=== PATIENT | female | born 2000 | race Caucasian/White ===

== ENCOUNTER 2018-11-06 15:53 | Observation (INO) | payer OTHER ==
[~2018-11-06] VITALS: Ht 170.2 cm; Wt 75.7 kg
--- NOTE | 2018-11-06 16:24 | NUR ---
PT AMB TO ROOM IN NO DISTRESS
[2018-11-06 16:55] LABS: URINE BILIRUBIN - DIPSTICK NEGATIVE (NEGATIVE); URINE BLOOD DIPSTICK SMALL (NEGATIVE); URINE COLOR YELLOW; URINE GLUCOSE - DIPSTICK NEGATIVE (NEGATIVE); URINE KETONE NEGATIVE (NEGATIVE); URINE LEUK ESTERASE MODERATE (NEGATIVE); URINE NITRITE - DIPSTICK NEGATIVE (Negative); URINE PROTEIN - DIPSTICK 100 mg/dL (NEG-TRACE); URINE SPECIFIC GRAVITY >=1.030; URINE UROBILINOGEN - DIPSTICK 0.2 E.U./dL (0.2)
[2018-11-06 17:05] LABS: URINE SQUAMOUS EPITHELIAL CELL FEW EPI/hpf (0-FEW); URINE WBC TNTC WBC/hpf (0-5)
[2018-11-06 17:06] LABS: URINE BACTERIA FEW hpf
[2018-11-06 17:13] LABS: HEMATOCRIT 39.2 % (37.0-47.0); HEMOGLOBIN 13.3 g/dl (12.0-16.0); IMMATURE GRANULOCYTES 0.6 % (0.0-5.0); MEAN CELL VOLUME 87.3 fL CALC (80.0-100.0); MEAN CORPUSCULAR HGB 29.6 pG CALC (26.0-32.0); MEAN CORPUSCULAR HGB CONC 33.9 g/L CALC (32.0-36.0); NEUT# 12.43 thou/uL (2.00-7.15); RED BLOOD COUNT 4.49 mill/uL (4.20-5.60); RED CELL DISTRI WIDTH 13.2 % (11.5-15.5)
[2018-11-06 17:15] LABS: GFR > 60 ML/MIN (>=60 (CALC)); GFR FOR AFR.AMER. > 60 ML/MIN (>=60 (CALC))
--- NOTE | 2018-11-06 17:15 | NUR ---
URINE AND STOOL SPECIMEN SENT ORDERED,
[2018-11-06 17:28] LABS: ALBUMIN 4.9 g/dL (3.2-5.0); ALKALINE PHOSPHATASE 85 u/l (38-126); ANION GAP 17 (6-22 (CALC)); BILIRUBIN, TOTAL 0.5 mg/dL (0.0-1.4); BUN 10 mg/dL (7-17); BUN/CREATININE RATIO 14 (12-20 (CALC)); CARBON DIOXIDE 21 mmol/l (22-30); CHLORIDE 104 mmol/l (95-108); CREATININE 0.7 mg/dL (0.5-1.0); GFR > 60 ML/MIN (>=60 (CALC)); GFR FOR AFR.AMER. > 60 ML/MIN (>=60 (CALC)); LIPASE 23 u/l (23-300); POTASSIUM 3.8 mmol/l (3.5-5.1); SGOT/AST 22 u/l (14-36); SODIUM 137 mmol/l (137-146); TOTAL PROTEIN 8.1 g/dL (6.3-8.2)
--- NOTE | 2018-11-06 18:04 | NUR ---
PT MEDICATED FOR N/V LIGHTS DIMMEDPER PT REQUEST, REMAINNS NPO, CALL LOCKE WITHIN REACH, WILL CONTINUE TO MONITOR.
[2018-11-06 18:26] LABS: C. DIFFICILE TOXIN A&B NEGATIVE (NEGATIVE)
--- NOTE | 2018-11-06 19:00 | NUR ---
IN ROOM INTRODUCED SELF TO PT. NO C/O AT THIS TIME IVF FINISHED INFUSING.
--- NOTE | 2018-11-06 19:30 | NUR ---
MD IN ROOM TO DISCUSS CLINICAL FINDINGS WITH PT. AND TO ALSO MAKE HER AWARE OF ADMISSION, VERBALIZED UNDERSTANDING.
--- NOTE | 2018-11-06 20:50 | NUR ---
PO TYLENOL GIVEN FOR TEMP. 101.3.
--- NOTE | 2018-11-06 20:57 | NUR ---
Admission Note Report Given to: MICKEY SHORT Transported by: Wheelchair X Stretcher Transported with: X Nurse Transporter X Patent IV O2 Hot Mix Operator
--- NOTE | 2018-11-06 21:03 | NUR ---
PT ARRIVED VIA WHEELCHAIR ACCOMPAINED BY FRIEND AND ER STAFF. PT ALERT AND ORIENTED. NO DISTRESS NOTED. PT DENIES ANY NAUSEA AT THIS TIME. IV SITE APPEARS HEALTHY. PT AMBULATED FROM WHEELCHAIR TO BED WITH STEADY GAIT. DISCUSSED POC AND SAFETY PRECAUTIONS. PT VERBALIZED UNDERSTANDING. ORIENTED TO ROOM AND CALL LIGHT SYSTEM. CALL LIGHT WITHIN REACH. WILL CONTINUE TO MONITOR.
--- NOTE | 2018-11-06 21:05 | NUR ---
PT. TAKEN TO MS FLOOR VIA STRETCHER, NO C/O AT THIS TIME.
[2018-11-06 21:08] VITALS: BP 125/69
--- NOTE | 2018-11-07 00:33 | NUR ---
IV ABT INFUSING. PT TOLERATING WELL. NO S/S OF ADVERSE REACTION NOTED. PT DENIES ANY PAIN OR DISCOMFORT AT THIS TIME. CALL LIGHT WITHIN REACH. WILL CONTINUE TO MONITOR.
[2018-11-07 04:17] VITALS: BP 116/86
--- NOTE | 2018-11-07 04:19 | NUR ---
PT RESTING IN BED WITH EYES CLOSED. NO S/S OF DISTRESS NOTED. CALL LIGHT WITHIN REACH. WILL CONTINUE TO MONITOR.
[2018-11-07 05:12] LABS: HEMATOCRIT 36.9 % (37.0-47.0); HEMOGLOBIN 12.4 g/dl (12.0-16.0); IMMATURE GRANULOCYTES 0.6 % (0.0-5.0); MEAN CELL VOLUME 88.5 fL CALC (80.0-100.0); MEAN CORPUSCULAR HGB 29.7 pG CALC (26.0-32.0); MEAN CORPUSCULAR HGB CONC 33.6 g/L CALC (32.0-36.0); NEUT# 6.32 thou/uL (2.00-7.15); RED BLOOD COUNT 4.17 mill/uL (4.20-5.60); RED CELL DISTRI WIDTH 13.2 % (11.5-15.5)
[2018-11-07 05:24] LABS: ALKALINE PHOSPHATASE 70 u/l (38-126); ANION GAP 13 (6-22 (CALC)); BILIRUBIN, TOTAL 0.5 mg/dL (0.0-1.4); BUN 9 mg/dL (7-17); BUN/CREATININE RATIO 12 (12-20 (CALC)); CARBON DIOXIDE 24 mmol/l (22-30); CHLORIDE 104 mmol/l (95-108); CREATININE 0.7 mg/dL (0.5-1.0); GFR > 60 ML/MIN (>=60 (CALC)); GFR FOR AFR.AMER. > 60 ML/MIN (>=60 (CALC)); LIPASE 35 u/l (23-300); MAGNESIUM 1.8 mg/dL (1.6-2.3); POTASSIUM 3.9 mmol/l (3.5-5.1); SGOT/AST 17 u/l (14-36); SODIUM 137 mmol/l (137-146)
[2018-11-07 05:29] LABS: ALBUMIN 3.8 g/dL (3.2-5.0); AMYLASE < 30 u/l (30-110); TOTAL PROTEIN 6.4 g/dL (6.3-8.2)
--- NOTE | 2018-11-07 07:39 | NUR ---
PT IN BATHROOM VOMITTING IN TOILET. PT REQUESTING ZOFRAN, PT MEDICATED PER MAR. PT UNABLE TO EAT BREAKFAST. DISCUSSED POC, VITALS OBTAINED, PT CONTINUES TO DRY HEAVE. ASSESSMENT COMPLETED. EMESIS BAGS PROVIDED. IVF INFUSING AT THIS TIME. CALL LIGHT IN REACH,CONTINUE TO MONITOR.
[2018-11-07 07:43] VITALS: BP 128/72
--- NOTE | 2018-11-07 08:14 | NUR ---
PT HAS A LOW GRADE FEVER, C/O PAIN TO HER BACK. MEDICATED WITH TYLENOL. INFORMED CORRECTIONAL PROGRAM OFFICER PT IS STILL DRY HEAVING. NEW ORDERS FOR PHENERGAN TO BE ENTERED.
--- NOTE | 2018-11-07 11:56 | NUR ---
AND LIZA AT BEDSIDE TO DISCUSS POC.
--- NOTE | 2018-11-07 14:21 | NUR ---
PT RESTING IN BED WITH EYES CLOSED, NO SIGNS OF DISTRESS NOTED, RESP EVEN AND UNLABORED. CALL LIGHT IN REACH,CONTINUE TO MONITOR.
[2018-11-07 15:20] VITALS: BP 113/75
--- NOTE | 2018-11-07 19:00 | NUR ---
SBAR REPORT RECEIVED FROM HEATH. PATIENT RESTING IN BED WATCHING TV, VISITOR AT BEDSIDE. TECH REPORTS TEMP OF 100.3 AND PATIENT REPORTS FEELING NAUSEATED WITH A HEADACHE OF 4 ON SCALE 0-10. WILL FOLLOW UP WITH INTERVENTIONS, BED IN LOW POSITION, CALL LIGHT WITHIN REACH.
[2018-11-07 19:06] VITALS: BP 123/68
--- NOTE | 2018-11-07 19:40 | NUR ---
MEDICATED WITH PHENERGAN FOR NAUSEA AND TYLENOL FOR FEVER AND HEADACHE. TOLERATED WELL.
--- NOTE | 2018-11-07 20:40 | NUR ---
PHENERGAN AND TYLENOL EFFECTIVE, TEMPERATURE 98.3. PATIENT REPORTS PAIN 0 ON SCALE 0-10 AND DENIES FEELING NAUSEOUS AT THIS TIME. SITTING UP IN BED EATING BROTH, TOLERATING WELL.
--- NOTE | 2018-11-08 00:41 | NUR ---
RESTING QUIETLY IN BED. IV ZOSYN COMPLETE, TOLERATED WELL. LR @100ML/HR INFUSING, IV PATENT. PATIENT DENIES PAIN AT THIS TIME, CALL LIGHT WITHIN REACH.
[2018-11-08 04:00] VITALS: BP 110/57
--- NOTE | 2018-11-08 04:45 | NUR ---
RESTING QUIETLY, EYES CLOSED. CALL LIGHT WITHIN REACH.
[2018-11-08 05:04] LABS: HEMATOCRIT 34.4 % (37.0-47.0); HEMOGLOBIN 11.3 g/dl (12.0-16.0); IMMATURE GRANULOCYTES 0.6 % (0.0-5.0); MEAN CELL VOLUME 88.7 fL CALC (80.0-100.0); MEAN CORPUSCULAR HGB 29.1 pG CALC (26.0-32.0); MEAN CORPUSCULAR HGB CONC 32.8 g/L CALC (32.0-36.0); NEUT# 2.28 thou/uL (2.00-7.15); RED BLOOD COUNT 3.88 mill/uL (4.20-5.60); RED CELL DISTRI WIDTH 13.3 % (11.5-15.5)
[2018-11-08 05:16] LABS: ANION GAP 11 (6-22 (CALC)); BUN 7 mg/dL (7-17); BUN/CREATININE RATIO 8 (12-20 (CALC)); CARBON DIOXIDE 26 mmol/l (22-30); CHLORIDE 107 mmol/l (95-108); CREATININE 0.8 mg/dL (0.5-1.0); GFR > 60 ML/MIN (>=60 (CALC)); GFR FOR AFR.AMER. > 60 ML/MIN (>=60 (CALC)); MAGNESIUM 1.8 mg/dL (1.6-2.3); POTASSIUM 4.1 mmol/l (3.5-5.1); SODIUM 140 mmol/l (137-146)
[2018-11-08 07:25] VITALS: BP 127/60
--- NOTE | 2018-11-08 07:25 | NUR ---
PT RESTING IN BED WITH EYES CLOSED. AWAKENS EASILY TO VERBAL STIMULI. ASSESSMENT COMPLETED. IVF INFUSING AT PRESCRIBED RATE. PT REQUESTING MED FOR NAUSEA PRIOR TO BREAKFAST THIS AM. WILL MEDICATE SHORTLY. POC DISCUSSED WITH PT. PT VERBALIZES UNDERSTANIDNG. WILL CONTINUE TO MONITOR. CALL LIGHT IN REACH.
[2018-11-08] MEDS ORDERED: PHENERGAN25 MG/TAB PO (12:20)
--- NOTE | 2018-11-08 13:19 | NUR ---
Discharge instructions given. Patient verbalizes understanding of same. Discharged in stable condition via Wheelchair to Home with family. All belongings sent with pt.
== END 2018-11-08 13:20 | disposition home or self-care (01) | DRG 392 ==
LOC: ED 15:53 → ED-I 18:36 → ED 18:55 → MS2 18:56
PROVIDERS: Nurse Practitioner Family; ADMIT Internal Medicine Nephrology; ATTEND Internal Medicine Nephrology
DX: K52.9 Noninfective gastroenteritis and colitis, unspecified (principal); G43.909 Migraine, unspecified, not intractable, without status migrainosus
CPT/HCPCS: G0378; Q9967